=== PATIENT | female | born 1945 | race Caucasian/White ===

== ENCOUNTER 2024-01-31 11:36 | Inpatient (IN) ==
[2024-01-31 12:07] LABS: Basophils # (auto) 0.03 K/uL (0.00-0.20); Basophils % (auto) 0.3 %; Eosinophils # (auto) 0.06 K/uL (0.00-0.50); Eosinophils % (auto) 0.6 %; Hematocrit (blood only) 43.4 % (37.0-47.0); Hemoglobin 14.6 g/dl (12.0-16.0); Immature Granulocytes # (auto) 0.04 K/uL (0.01-0.20); Immature Granulocytes % (auto) 0.4 %; Lymphocytes # (auto) 2.65 K/uL (1.20-3.40); Lymphocytes % (auto) 26.6 %; Mean Corpuscular Hemoglobin 31.4 pg (25.0-34.0); Mean Corpuscular Hgb Conc 33.6 g/dL (32.0-36.0); Mean Corpuscular Volume 93.3 fL (80.0-100.0); Mean Platelet Volume 9.8 fL (9.4-12.4); Monocytes # (auto) 0.54 K/uL (0.11-0.59); Monocytes % (auto) 5.4 %; Neutrophils # (auto) 6.66 K/uL (1.40-6.50); Neutrophils % (auto) 66.7 %; Platelet Count 333 K/uL (130-400); RDW Coefficient of Variation 13.6 % (11.5-14.5); RDW Standard Deviation 46.6 fL (36.4-46.3); Red Blood Count 4.65 M/uL (4.20-5.40); White Blood Count 9.98 K/ul (4.8-10.8)
[2024-01-31 12:20] LABS: Albumin Globulin Ratio 1.2 (0.9-2); BUN Creatinine Ratio 31.1 (10-20); Bilirubin,Total 0.5 mg/dl (0.2-1.0); Calcium 9.6 mg/dl (8.6-10.3); Creatinine Clr Calc Pharmacy 68.4 ml/min; Est GFR (African American) 100.6 ml/min; Est GFR (Non-African American) 86.8 ml/min; Globulin 3.4 gm/dl (2.5-4.0); Potassium 3.3 mmol/L (3.5-5.1); Total Protein 7.4 gm/dl (6.0-8.3)
[2024-01-31 12:26] LABS: Troponin I High Sensitivity 8.6 pg/ml (0-14)
[2024-01-31 12:33] LABS: Partial Thromboplastin Time 28 Seconds (21-31); Prothrombin Time 10.6 Seconds (9.0-12.0)
[2024-01-31 12:39] LABS: Influenza A virus by PCR Negative (Neg); Influenza B virus by PCR Negative (Neg); RSV by PCR Negative (Neg); SARS CoV2 RNA(COVID-19) Ceph NEGATIVE (Negative)
--- NOTE | 2024-01-31 12:56 | XRay Report ---
XR chest 1V not portable HISTORY: Shortness of breath. Cough. COMPARISON: None. FINDINGS: No pneumothorax. No pleural effusions. No focal lung consolidations to suggest a pneumonia. No evidence for pulmonary edema. The cardiac silhouette is mildly enlarged. There is a mildly tortuo us thoracic aorta. No acute fractures. There is a right shoulder prosthesis. IMPRESSION: Mild cardiomegaly. Otherwise, no acute process within the chest. ACT 112: Negative or not required by law. Electronically signed by: Logan Sullivan M.D. 01/31/2024 12:55 PM
--- NOTE | 2024-01-31 14:53 | Emergency Department Note ---
Impression & Plan Hypoxia, Parainfluenza infection, Pneumonia, Failure of outpatient treatment ED Provider Note NAME: SIMIN BROUSSARD AGE: 78 SEX: F : 1945 ARRIVES VIA: Walk-In INFORMANT: [Patient] ED PROVIDER(S): [Husam Garrido MD] CHIEF COMPLAINT: Short of breath HISTORY OF PRESENT ILLNESS: The patient is a 78-year-old female who does not have diagnosed lung disease. The patient states that about a week ago, she began with some shortness of breath, cough and congestion. She went to [facility] and was given an antibiotic and an inhaler. She feels no better, she is still quite short of breath. She thinks her cough has changed from dry to wet. There has been no fever. The patient was concerned with how she was feeling as she lives alone. She went to her doctor's office today and her O2 saturation was in the low 80s with exertion. She was sent to our ER for evaluation for failed outpatient bronchitis treatment. PMHx/PSHx/Social Hx: See Below PHYSICAL EXAM: GENERAL: Patient is in no acute distress. HEENT: No acute trauma, normocephalic atraumatic, mucous membranes moist, no nasal congestion. NECK: No stridor, no adenopathy, no meningismus, trachea is midline. LUNGS: Wheezing bilaterally, no obvious respiratory distress, breath sounds are diminished bilaterally. HEART: Without murmurs gallops or rubs, regular rate and rhythm. ABDOMEN: Soft, nontender, no peritonitis. EXTREMITIES: No cyanosis, full range of motion of all the joints without pain or difficulty. NEUROLOGIC: Oriented x 3, no acute motor or sensory deficits, no focal weakness. SKIN: No jaundice, no diaphoresis. DIFFERENTIAL DIAGNOSIS: Bronchitis or pneumonia, PE, hypoxia, anemia, electrolyte imbalance, among others. EMERGENCY DEPARTMENT PROCEDURES: MEDICAL DECISION MAKING: There is no leukocytosis or concerning anemia. There is a normal platelet count. No coagulopathy. Potassium slightly low but not in need of emergent correction. No renal failure. No concerning liver enzyme elevation. ECG shows sinus rhythm with inverted T waves in the anterior and lateral leads. No ST elevation. Cardiac enzyme testing x 1 was not consistent with acute cardiac injury. Respiratory bio fire was positive for parainfluenza virus. Chest x-ray did not show any obvious focal pneumonia. Chest CT did not show PE, patchy diffuse bilateral pneumonia was noted. The patient was hypoxic. She received nasal cannula O2 supplementation. She was given a DuoNeb, she received IV Solu-Medrol, she was given IV ceftriaxone as antibiotic coverage. The patient's pneumonia may be viral. In any regard, she has failed outpatient treatment. I do think she requires a hospital stay. Further care for her hypoxia and CT findings is warranted. I did speak with the patient and case management, the on-call hospitalist was consulted. Prior/Outside records/notes reviewed: Today's outpatient note describing her presentation and the need for the ED referral. ECG per my interpretation: Indication was shortness of breath. ECG shows a normal sinus rhythm with a rate of 80. There are some inverted T waves in the anterior and lateral leads. There is no ST elevation. No PVCs. The QTc is 472. No old ECGs available for comparison. Continuous Cardiac Monitoring per my interpretation: An order was placed for continuous cardiac monitoring. The monitor shows a rate of 78 with normal sinus rhythm. Imaging/x-ray results per my interpretation: Chest x-ray shows some diffuse parenchymal congestion but there is no infiltrate or pneumothorax, no CHF. Chronic Medical/Social conditions affecting care: Advanced age. Care/Management discussed with: Case management, the on-call hospitalist. Level of care consideration(s): After review of the information above and other included data: --I believe the patient requires escalation of care to admission DISPOSITION: Admission Past Med/Surg History Problem List (Updated 02/01/24 @ 10:26 by Husam Garrido MD) Failure of outpatient treatment (Acute) Pneumonia (Acute) Parainfluenza infection (Acute) Hypoxia (Acute) Hyperlipidemia Hypoxia Parainfluenza virus infection Multifocal pneumonia Medical History Borderline diabetes Hypertension Social History Smoking Status: Never smoker Hx Alcohol Use: No Hx Substance Use: No Preferred Language: Turkmen Communication Ability: Effective Financial Operations Clerk Required: No Beliefs That Will Affect Care: None Current Living Situation: Alone Current Living Situation Comment: Son checks on regularly Other Information That Helps Us Care for You: No Feels Safe at Home: Yes Safety Concerns: Feels Safe At This Time Assistive Devices: Glasses Allergies Allergies Allergy/AdvReac Type Severity Reaction Status Date / Time No Known Allergies Allergy Unverified 01/31/24 16:54 Home Meds Home Medications Medication Instructions Recorded Confirmed acetaminophen 500 mg tablet 1,000 mg PO QID PRN Pain 01/31/24 01/31/24 (Tylenol Extra Strength) amlodipine 2.5 mg tablet 2.5 mg PO DAILY 01/31/24 01/31/24 cholecalciferol (vitamin D3) 50 50 mcg PO DAILY 01/31/24 01/31/24 mcg (2,000 unit) capsule (Vitamin D3) metformin 500 mg tablet,extended 500 mg PO DAILY 01/31/24 01/31/24 release 24 hr pravastatin 80 mg tablet 80 mg PO DAILY 01/31/24 01/31/24 Results & Data (ED) Vital Signs Vital Signs - 24 hr 01/31/24 11:39 01/31/24 11:48 01/31/24 11:50 Temperature 36.5 C Temperature Source Temporal Artery Scan Pulse Rate 84 Pulse Rate [Apical] Respiratory Rate 14 Respiratory Effort / Characteristics Respiratory Depth Blood Pressure 150/104 H Blood Pressure [Right Arm] Blood Pressure Mean 119 Blood Pressure Mean [Right Arm] Pulse Oximetry 89 L 89 L 94 Oxygen Delivery Method Room Air Room Air Nasal Cannula Room Air Oxygen Flow Rate 0 Sepsis New/Unexplained Change in Mental Status No Sepsis Action Taken by Nursing No Action Required Oxygen Flow Rate - Titration 2 Pulse Oximetry Post Tiitration 94 01/31/24 14:52 01/31/24 15:46 01/31/24 17:00 Temperature Temperature Source Pulse Rate Pulse Rate [Apical] 75 80 Respiratory Rate 16 Respiratory Effort / Characteristics Non-Labored Spontaneous Respiratory Depth Normal Blood Pressure Blood Pressure [Right Arm] 151/99 H 163/106 H Blood Pressure Mean Blood Pressure Mean [Right Arm] 116 125 Pulse Oximetry 88 L 90 92 Oxygen Delivery Method Room Air Nasal Cannula Nasal Cannula Oxygen Flow Rate 3 3 Sepsis New/Unexplained Change in Mental Status Sepsis Action Taken by Nursing Oxygen Flow Rate - Titration Pulse Oximetry Post Tiitration Home Medications Current Medication List: was personally reviewed by me Laboratory Data Attestation: I reviewed the patient's lab results. 02/01/24 07:03 02/01/24 07:03 Lab Results 01/31/24 01/31/24 01/31/24 Range/Units 11:48 11:50 11:50 WBC 9.98 (4.8-10.8) K/ul RBC 4.65 (4.20-5.40) M/uL Hgb 14.6 (12.0-16.0) g/dl Hct 43.4 (37.0-47.0) % MCV 93.3 (80.0-100.0) fL MCH 31.4 (25.0-34.0) pg MCHC 33.6 (32.0-36.0) g/dL RDW Std Deviation 46.6 H (36.4-46.3) fL RDW Coeff of Muriel 13.6 (11.5-14.5) % Plt Count 333 (130-400) K/uL MPV 9.8 (9.4-12.4) fL Immature Gran % (Auto) 0.4 % Neut % (Auto) 66.7 % Lymph % (Auto) 26.6 % [place] % (Auto) 5.4 % Eos % (Auto) 0.6 % Baso % (Auto) 0.3 % Neut # (Auto) 6.66 H (1.40-6.50) K/uL Lymph # (Auto) 2.65 (1.20-3.40) K/uL [place] # (Auto) 0.54 (0.11-0.59) K/uL Eos # (Auto) 0.06 (0.00-0.50) K/uL Baso # (Auto) 0.03 (0.00-0.20) K/uL Immature Gran # (Auto) 0.04 (0.01-0.20) K/uL PT 10.6 (9.0-12.0) Seconds INR 1.0 (0.9-1.1) APTT 28 (21-31) Seconds PTT Ratio 1.0 Sodium 142 (136-145) mmol/L Potassium 3.3 L (3.5-5.1) mmol/L Chloride 105 (98-107) mmol/L Carbon Dioxide 29 (21-32) mmol/L Anion Gap 8 (3-11) BUN 19 (6-23) mg/dl Creatinine 0.61 (0.6-1.2) mg/dl Est Cr Clr Drug Dosing 68.4 ml/min Est GFR ( Amer) 100.6 ml/min Est GFR (Non-Af Amer) 86.8 ml/min BUN/Creatinine Ratio 31.1 H (10-20) Glucose 97 (70-99(Fasting)) mg/dl Calcium 9.6 (8.6-10.3) mg/dl Total Bilirubin 0.5 (0.2-1.0) mg/dl AST 16 (13-39) U/L ALT 11 (7-52) U/L Alkaline Phosphatase 64 (34-104) U/L Troponin I High Sens 8.6 (0-14) pg/ml Total Protein 7.4 (6.0-8.3) gm/dl Albumin 4.0 (3.4-5.0) gm/dl Globulin 3.4 (2.5-4.0) gm/dl Albumin/Globulin Ratio 1.2 (0.9-2) Procalcitonin < 0.02 (0-0.5) ng/ml Adenovirus (PCR) Not Detected (NotDetected) B. pertussis DNA (PCR) Not Detected (NotDetected) B.parapertussis DNA PCR Not Detected (NotDetected) C. pneumoniae DNA (PCR) Not Detected (NotDetected) Coronavirus OC43 (PCR) Not Detected (NotDetected) Coronavirus HKU1 (PCR) Not Detected (NotDetected) Coronavirus 229E (PCR) Not Detected (NotDetected) SARS-CoV-2 (PCR) NEGATIVE Not Detected (Negative) Coronavirus NL63 (PCR) Not Detected (NotDetected) Human Metapneumovir PCR Not Detected (NotDetected) Influenza Type A (PCR) Negative (Neg) Influenza Type B (PCR) (Neg) M. pneumoniae (PCR) (NotDetected) Parainfluenza 1 (PCR) (NotDetected) Parainfluenza 2 (PCR) (NotDetected) Parainfluenza 3 (PCR) (NotDetected) Parainfluenza 4 (PCR) (NotDetected) RSV (RT-PCR) (Neg) RSV (PCR) (NotDetected) Entero/Rhino (PCR) (NotDetected) 01/31/24 01/31/24 Range/Units 11:50 11:50 WBC (4.8-10.8) K/ul RBC (4.20-5.40) M/uL Hgb (12.0-16.0) g/dl Hct (37.0-47.0) % MCV (80.0-100.0) fL MCH (25.0-34.0) pg MCHC (32.0-36.0) g/dL RDW Std Deviation (36.4-46.3) fL RDW Coeff of Muriel (11.5-14.5) % Plt Count (130-400) K/uL MPV (9.4-12.4) fL Immature Gran % (Auto) % Neut % (Auto) % Lymph % (Auto) % [place] % (Auto) % Eos % (Auto) % Baso % (Auto) % Neut # (Auto) (1.40-6.50) K/uL Lymph # (Auto) (1.20-3.40) K/uL [place] # (Auto) (0.11-0.59) K/uL Eos # (Auto) (0.00-0.50) K/uL Baso # (Auto) (0.00-0.20) K/uL Immature Gran # (Auto) (0.01-0.20) K/uL PT (9.0-12.0) Seconds INR (0.9-1.1) APTT (21-31) Seconds PTT Ratio Sodium (136-145) mmol/L Potassium (3.5-5.1) mmol/L Chloride (98-107) mmol/L Carbon Dioxide (21-32) mmol/L Anion Gap (3-11) BUN (6-23) mg/dl Creatinine (0.6-1.2) mg/dl Est Cr Clr Drug Dosing ml/min Est GFR ( Amer) ml/min Est GFR (Non-Af Amer) ml/min BUN/Creatinine Ratio (10-20) Glucose (70-99(Fasting)) mg/dl Calcium (8.6-10.3) mg/dl Total Bilirubin (0.2-1.0) mg/dl AST (13-39) U/L ALT (7-52) U/L Alkaline Phosphatase (34-104) U/L Troponin I High Sens (0-14) pg/ml Total Protein (6.0-8.3) gm/dl Albumin (3.4-5.0) gm/dl Globulin (2.5-4.0) gm/dl Albumin/Globulin Ratio (0.9-2) Procalcitonin (0-0.5) ng/ml Adenovirus (PCR) (NotDetected) B. pertussis DNA (PCR) (NotDetected) B.parapertussis DNA PCR (NotDetected) C. pneumoniae DNA (PCR) (NotDetected) Coronavirus OC43 (PCR) (NotDetected) Coronavirus HKU1 (PCR) (NotDetected) Coronavirus 229E (PCR) (NotDetected) SARS-CoV-2 (PCR) (Negative) Coronavirus NL63 (PCR) (NotDetected) Human Metapneumovir PCR (NotDetected) Influenza Type A (PCR) Not Detected (Neg) Influenza Type B (PCR) Negative Not Detected (Neg) M. pneumoniae (PCR) Not Detected (NotDetected) Parainfluenza 1 (PCR) Not Detected (NotDetected) Parainfluenza 2 (PCR) Not Detected (NotDetected) Parainfluenza 3 (PCR) DETECTED A (NotDetected) Parainfluenza 4 (PCR) Not Detected (NotDetected) RSV (RT-PCR) Negative (Neg) RSV (PCR) Not Detected (NotDetected) Entero/Rhino (PCR) Not Detected (NotDetected) Administered Medications Albuterol (Albut/Ipratrop 3mg/0.5mg Neb 3 Ml Vial) 3 ml NEB Q6R [facility]; Protocol Stop: 03/01/24 20:44 Last Admin: 02/01/24 07:12 Dose: 3 ml Documented By: Admin: 02/01/24 00:30 Dose: 3 ml Documented By: Admin: 01/31/24 20:59 Dose: 3 ml Documented By: OSIRIS Amlodipine Besylate (Amlodipine Besylate 5 Mg Tab) 2.5 mg PO DAILY [facility] Stop: 03/02/24 08:59 Last Admin: 02/01/24 09:05 Dose: 2.5 mg Documented By: MAURY Enoxaparin Sodium (Enoxaparin Inj 40 Mg/0.4 Ml Syr) 40 mg SQ Q24H [facility] Stop: 03/01/24 20:59 Last Admin: 01/31/24 21:59 Dose: 40 mg Documented By: KAYKAY Azithromycin 500 mg/ Dextrose 255 mls @ 127.5 mls/hr IV Q24H [facility] Stop: 02/08/24 08:15 Last Admin: 02/01/24 09:05 Dose: 127.5 mls/hr Documented By: MAURY Insulin Aspart (Insulin Aspart Per Unit Charge) 0 units SC ACHS [facility] Stop: 03/01/24 20:59 Last Admin: 02/01/24 09:04 Dose: 5 units Documented By: MAURY Co-signed By: RASHID Admin: 01/31/24 22:00 Dose: 2 units Documented By: KAYKAY Co-signed By: EULALIOR Pravastatin Sodium (Pravastatin Sod 40 Mg Tab) 80 mg PO DAILY [facility] Stop: 03/02/24 08:59 Last Admin: 02/01/24 09:06 Dose: 80 mg Documented By: MAURY Discontinued Medications Albuterol (Albut/Ipratrop 3mg/0.5mg Neb 3 Ml Vial) 3 ml NEB NOW STA; Protocol Stop: 01/31/24 14:38 Last Admin: 01/31/24 15:00 Dose: 3 ml Documented By: JULEE Ceftriaxone Sodium (Rocephin) 2,000 mg in 50 mls @ 100 mls/hr IV NOW STA Stop: 01/31/24 16:39 Last Infusion: 01/31/24 16:51 Dose: Infused Documented By: Admin: 01/31/24 16:21 Dose: 100 mls/hr Documented By: JULEE Ioversol (Optiray 320 125ml) 118 ml IV ONCE ONE Stop: 01/31/24 15:34 Last Admin: 01/31/24 15:34 Dose: 118 ml Documented By: BRANDO Methylprednisolone (Methylprednisolone 125 Mg/2 Ml Vial) 60 mg IV NOW STA Stop: 01/31/24 14:38 Last Admin: 01/31/24 14:55 Dose: 60 mg Documented By: JULEE Methylprednisolone (Methylprednisolone 125 Mg/2 Ml Vial) 60 mg IV NOW STA Stop: 01/31/24 16:11 Last Admin: 01/31/24 16:21 Dose: 60 mg Documented By: JULEE Potassium Chloride (Potassium Chloride 10 Meq Tabcr) 10 meq PO NOW STA Stop: 01/31/24 17:52 Last Admin: 01/31/24 18:35 Dose: 10 meq Documented By: [facility] [place] Imaging Data Radiologist's Impression: Chest X-Ray 01/31/24 11:43 XR chest 1V not portable HISTORY: Shortness of breath. Cough. COMPARISON: None. FINDINGS: No pneumothorax. No pleural effusions. No focal lung consolidations to suggest a pneumonia. No evidence for pulmonary edema. The cardiac silhouette is mildly enlarged. There is a mildly tortuous thoracic aorta. No acute fractures. There is a right shoulder prosthesis. IMPRESSION: Mild cardiomegaly. Otherwise, no acute process within the chest. ACT 112: Negative or not required by law. Electronically signed by: Logan Sullivan M.D. 01/31/2024 12:55 PM Discharge Plan Visit Data Chief Complaint: Referred by Doctor Stated Complaint: REF BY DOC ED Provider: Husam Garrido Discharge Problem: Hypoxia, Parainfluenza infection, Pneumonia, Failure of outpatient treatment Patient Disposition: Admitted As Inpatient Condition: Fair Discharge Instructions Interventions: ED Discharge Assessment Last Done: 01/31/24 19:44 Discharge Problem: Pneumonia Qualifiers: Pneumonia type: due to unspecified organism Laterality: bilateral Lung location: unspecified part of lung Qualified Code(s): J18.9 - Pneumonia, unspecified organism
[2024-01-31] MEDS: methylPREDNISolone 125 MG/2 ML VIAL IV STA ×2 (14:55→16:21)
[2024-01-31] MEDS: ALBUT/IPRATROP 3MG/0.5MG NEB 3 ML VIAL NEB STA (15:00)
[2024-01-31] MEDS: OPTIRAY 320 125ml IV ONE (15:34)
[2024-01-31 15:43] LABS: Adenovirus PCR Not Detected (NotDetected); Bordetella parapertussis PCR Not Detected (NotDetected); Bordetella pertussis PCR Not Detected (NotDetected); Chlamydia pneumoniae PCR Not Detected (NotDetected); Coronavirus 229E PCR Not Detected (NotDetected); Coronavirus CoV-2 (COVID19)PCR Not Detected (NotDetected); Coronavirus HKU1 PCR Not Detected (NotDetected); Coronavirus NL63 PCR Not Detected (NotDetected); Coronavirus OC43PCR Not Detected (NotDetected); Human Metapneumovirus PCR Not Detected (NotDetected); Influenza A PCR Not Detected (NotDetected); Influenza B PCR Not Detected (NotDetected); Mycoplasma pneumoniae PCR Not Detected (NotDetected); Parainfluenza Virus 1 PCR Not Detected (NotDetected); Parainfluenza Virus 2 PCR Not Detected (NotDetected); Parainfluenza Virus 3 PCR DETECTED (NotDetected); Parainfluenza Virus 4 PCR Not Detected (NotDetected); Respiratory Syncytial VirusPCR Not Detected (NotDetected); Rhinovirus/Enterovirus PCR Not Detected (NotDetected)
--- NOTE | 2024-01-31 15:47 | CT Scan Report ---
CT angio chest PE protocol CT DOSE: 453.12 mGy.cm HISTORY: 78 years-old Female with PE. Acute shortness of breath TECHNIQUE: Multiple CTA images of the chest were obtained after the intravenous administration of 118 ml Optiray. Coronal and sagittal MIPS were obtained from the axial data set and were submitted for review. All measurements were obtained according to NASCET criteria. A dose lowering technique was u tilized adhering to the principles of ALARA. COMPARISON: Chest radiograph same day FINDINGS: CTA: Heart is mildly enlarged. Mild coronary artery calcifications. Atherosclerosis of the aorta with desc ending thoracic aortic tortuosity. Additionally, there is ectasia of the descending thoracic aorta, 3 .4 cm. No pulmonary emboli identified. CT CHEST: No thyroid nodule. Mediastinal and hilar lymph nodes measure up to 9 mm, likely reactive. No pneumoth orax. Bronchial wall thickening with multifocal mucus plugging. Mild pulmonary emphysema. Patchy subs egmental groundglass and nodular areas of consolidation are noted within a multilobar distribution in cluding a 2.7 cm focus in the right upper lobe, image 150. No pulmonary edema. 3.3 cm probable cyst of the superior pole left kidney. Reverse right shoulder arthroplasty. No acute fracture. IMPRESSION: 1. No pulmonary emboli identified. 2. Emphysema with bronchitis and mucous plugging. Additional patchy groundglass and consolidative opa cities are suggestive of multifocal pneumonia. 3. Borderline enlarged mediastinal and hilar lymph nodes, likely reactive. 4. Ectasia of the descending thoracic aorta, 3.4 cm. ACT 112: Negative or not required by law. The above report was generated using voice recognition software. It may contain grammatical, syntax o r spelling errors. Electronically signed by: Prudencio Mehta M.D. 01/31/2024 3:46 PM
[2024-01-31] MEDS: cefTRIAXone SODIUM 2,000 MG/50 ML BAG IV STA (16:21)
--- NOTE | 2024-01-31 17:17 | History & Physical Report ---
Date of Service January 31, 2024 Assessment & Plan (1) Multifocal pneumonia: Plan: Worsening SOB/productive cough x 7 days Patient was placed on Augmentin on 01/25, but did not take the full dose as she could not tolerate the diarrhea Chest CTA without pulmonary embolism, but included consolidative opacities consistent with multifocal pneumonia Procalcitonin ordered, pending MRSA swab ordered, pending Rocephin 2000 mg IV q24h Follow blood culture A.m. CBC, BMP (2) Parainfluenza virus infection: Plan: Parainfluenza 3 (+) on arrival Droplet precautions DuoNeb 3 mL Q6R for wheezing Acetaminophen as needed for pain/fever Supportive care (3) Hypoxia: Plan: Patient dropped to 83% on RA with ambulation Supplemental oxygen as needed to maintain SpO2 >94% Continuous pulse oximetry Dizziness/lightheadedness with walking PT/OT evaluations appreciated (4) Borderline diabetes: Plan: No A1c on file Hold metformin SSI; with target BSG range 110-140mg/dL, CF 50, carb ratio 15 T2DM diet BSG ACHS Adjust regimen as needed AM A1c (5) Hypertension: Plan: Continue amlodipine (6) Hyperlipidemia: Plan: Continue statin Plan Disposition: Admit to MedSurg telemetry DNR/DNI T2DM, heart healthy diet DVT PPx History of Present Illness Chief Complaint: SOB/dyspnea Primary Care Provider: Tadeo Carrasco MD Ting is a pleasant 78-year-old female with PMH of borderline diabetes, HTN and HLD. She presented for SOB x 1 week. Her difficulty breathing started Saturday night, and she went to [facility] last Saturday and was diagnosed with bronchitis. She was placed on Augmentin BID as well as an inhaler, but she stopped taking the Augmentin on Saturday due to severe diarrhea. Throughout the week, the breathing got worse. She will use the inhaler every 4 hours, but this did not help. She endorses both SOB at rest and with exertion, but she notes that the JANSEN has become severe even when walking to the bathroom. SOB is worse when she lies flat on her back. No supplemental oxygen at home. When she was at her PCPs office today, her oxygen saturation dropped to 83% on RA with ambulation. She did not take any of her regular morning medicine today except for her amlodipine; no recent change in medications. She denies a history of CHF. She denies smoking, tobacco use, and recent alcohol use. Patient is hypertensive at 163/106, and SpO2 is 92% on 3 L NC. ED course: Rocephin 2000 mg IV Solu-Medrol 60 mg IV x 2 DuoNeb 3 mL ROS: Patient endorses dizziness & lightheadedness with walking, SOB at rest and with exertion, productive cough (clear sputum), hoarseness, diarrhea (secondary to Augmentin, per patient), Patient denies fever, chills, night-sweats, body aches, LINO, changes in vision, chest pain, chest palpitations, pleuritic CP, hemoptysis, wheezing, abdominal pain, N/V, change in urinary/bowel habits, or numbness/tingling/swelling in the arms or legs. Allergies Allergy/AdvReac Type Severity Reaction Status Date / Time No Known Allergies Allergy Unverified 01/31/24 16:54 Home Medications Medication Instructions Recorded Confirmed Type acetaminophen 500 mg tablet 1,000 mg PO QID PRN Pain 01/31/24 01/31/24 History (Tylenol Extra Strength) amlodipine 2.5 mg tablet 2.5 mg PO DAILY 01/31/24 01/31/24 History cholecalciferol (vitamin D3) 50 50 mcg PO DAILY 01/31/24 01/31/24 History mcg (2,000 unit) capsule (Vitamin D3) metformin 500 mg tablet,extended 500 mg PO DAILY 01/31/24 01/31/24 History release 24 hr pravastatin 80 mg tablet 80 mg PO DAILY 01/31/24 01/31/24 History Past Med/Surg History Problem List (Updated 01/31/24 @ 18:06 by Logan Fontenot PA-C) Borderline diabetes Hyperlipidemia Hypertension Hypoxia Parainfluenza virus infection Multifocal pneumonia Social History Smoking Status: Never smoker Hx Alcohol Use: No Hx Substance Use: No Preferred Language: Lithuanian Communication Ability: Effective Traffic Control Specialist Required: No Beliefs That Will Affect Care: None Current Living Situation: Alone Current Living Situation Comment: Son checks on regularly Other Information That Helps Us Care for You: No Feels Safe at Home: Yes Safety Concerns: Feels Safe At This Time Assistive Devices: Glasses Review of Systems Review of Systems: See HPI above Physical Exam Physical Exam: General: Mild acute respiratory distress; non-toxic appearing; well-nourished; cooperative; SpO2 92% on 3 LNC HEENT: normocephalic, atraumatic; no scleral icterus; PERRLA; moist mucus membrane; vision and hearing grossly intact Neck: supple; no lymphadenopathy; trachea midline Skin: warm, dry without signs of tenting; no cyanosis; no rashes, bruising, lesions, or erythema noted CV: chest wall NTP; RRR; S1/S2 normal; no murmurs/rubs/gallops; bounding pulses intact and symmetric at radial, DP, and PT Lungs: Mild acute respiratory distress; conversational dyspnea 70 symmetrical chest wall expansion; bibasilar lower lung crackles as well as inspiratory wheeze across all lung field bilaterally ABD: Soft, NTP; BS present; no rebound/guarding; no distention MSK: no tics or fasciculations; no edema noted in the LEs b/l, nonerythematous Neuro: A&Ox3; normal mood and affect; fluent speech; no focal deficits; sensation grossly intact in the LEs b/l Results & Data Results & Data Vital Signs (Past 12 Hours) Vital Signs Temp Pulse Pulse Resp BP BP Pulse Ox 01/31/24 17:00 80 16 163/106 H 92 01/31/24 15:46 75 151/99 H 90 01/31/24 14:52 88 L 01/31/24 11:50 94 01/31/24 11:48 89 L 01/31/24 11:39 36.5 C 84 14 150/104 H 89 L O2 Del Method O2 Flow Rate 01/31/24 17:00 Nasal Cannula 3 01/31/24 15:46 Nasal Cannula 3 01/31/24 14:52 Room Air 01/31/24 11:50 Room Air 01/31/24 11:48 Room Air, Nasal Cannula 0 01/31/24 11:39 Room Air Laboratory Results Abnormal lab results 01/31/24 01/31/24 Range/Units 11:48 11:50 RDW Std Deviation 46.6 H (36.4-46.3) fL Neut # (Auto) 6.66 H (1.40-6.50) K/uL Potassium 3.3 L (3.5-5.1) mmol/L BUN/Creatinine Ratio 31.1 H (10-20) Parainfluenza 3 (PCR) DETECTED A (NotDetected) Diagnostic Findings Chest X-Ray 01/31/24 11:43 XR chest 1V not portable HISTORY: Shortness of breath. Cough. COMPARISON: None. FINDINGS: No pneumothorax. No pleural effusions. No focal lung consolidations to suggest a pneumonia. No evidence for pulmonary edema. The cardiac silhouette is mildly enlarged. There is a mildly tortuous thoracic aorta. No acute fractures. There is a right shoulder prosthesis. IMPRESSION: Mild cardiomegaly. Otherwise, no acute process within the chest. ACT 112: Negative or not required by law. Electronically signed by: Logan Sullivan M.D. 01/31/2024 12:55 PM Chest CTA 01/31/24 14:37 CT angio chest PE protocol CT DOSE: 453.12 mGy.cm HISTORY: 78 years-old Female with PE. Acute shortness of breath TECHNIQUE: Multiple CTA images of the chest were obtained after the intravenous administration of 118 ml Optiray. Coronal and sagittal MIPS were obtained from the axial data set and were submitted for review. All measurements were obtained according to NASCET criteria. A dose lowering technique was utilized adhering to the principles of ALARA. COMPARISON: Chest radiograph same day FINDINGS: CTA: Heart is mildly enlarged. Mild coronary artery calcifications. Atherosclerosis of the aorta with descending thoracic aortic tortuosity. Additionally, there is ectasia of the descending thoracic aorta, 3.4 cm. No pulmonary emboli identified. CT CHEST: No thyroid nodule. Mediastinal and hilar lymph nodes measure up to 9 mm, likely reactive. No pneumothorax. Bronchial wall thickening with multifocal mucus plugging. Mild pulmonary emphysema. Patchy subsegmental groundglass and nodular areas of consolidation are noted within a multilobar distribution including a 2.7 cm focus in the right upper lobe, image 150. No pulmonary edema. 3.3 cm probable cyst of the superior pole left kidney. Reverse right shoulder arthroplasty. No acute fracture. IMPRESSION: 1. No pulmonary emboli identified. 2. Emphysema with bronchitis and mucous plugging. Additional patchy groundglass and consolidative opacities are suggestive of multifocal pneumonia. 3. Borderline enlarged mediastinal and hilar lymph nodes, likely reactive. 4. Ectasia of the descending thoracic aorta, 3.4 cm. ACT 112: Negative or not required by law. The above report was generated using voice recognition software. It may contain grammatical, syntax or spelling errors. Electronically signed by: Prudencio Mehta M.D. 01/31/2024 3:46 PM ECG Additional Comments: ECG revealed NSR at 80 bpm; QTc 472 Code Status & VTE Plan Code Status DNR/DNI VTE Prophylaxis Plan VTE Prophylaxis will be ordered: Yes Supervising Physician Co-Signing Physician Notes Patient seen and examined, chart reviewed, case discussed with Logan Fontenot PA-C and I agree with the assessment and plan as above except as otherwise noted Labs and images reviewed 78-year-old female with multifocal pneumonia, chest CTA shows consolidative opacities. She does not have a leukocytosis, and procalcitonin is negative. Bio fire is positive for parainfluenza. Given consolidation has been covered for superimposed pneumonia with Rocephin, although with negative Pro-Esa and no leukocytosis suspicious for viral process. If superimposed menu suspected could expand to azithromycin to cover for atypical pathogens. She is hypoxic and dyspneic on conversation in the ER. Bibasilar crackles are present no rales. Agree with management above PG Care Time/CCT Total # of Minutes Spent Total Time Spent with Patient: Total time spent is greater than 50% in coordination of care (as documented) at patient's floor/unit and/or counseling patient: [place] [address] INT INP/OBS CARE 3/75MIN Patient Type New Medical Decision Making High Complexity Diagnoses Multifocal pneumonia J18.9 Parainfluenza virus infection B34.8 Hypoxia R09.02 Borderline diabetes R73.03 Hypertension I10 Hyperlipidemia E78.5
[2024-01-31] MEDS: POTASSIUM CHLORIDE 10 MEQ TABCR PO STA (18:35)
[2024-01-31] MEDS ORDERED: GLUCOSE 40% GEL 15 GM TUBE PO PRN (20:45)
[2024-01-31] MEDS ORDERED: GLUCOSE 10 TAB/TUBE PO PRN (20:45)
[2024-01-31] MEDS ORDERED: ACETAMINOPHEN 325 MG TAB PO PRN (20:45)
[2024-01-31] MEDS ORDERED: GLUCAGON FOR INJ 1 MG VIAL SQ PRN (20:45)
[2024-01-31] MEDS ORDERED: DEXTROSE 50% 50 ML SYRINGE IV PRN (20:45)
[2024-01-31] MEDS ORDERED: CARBOHYDRATES FOR HYPOGLYCEMIA PO PRN (20:45)
[2024-01-31] MEDS: ALBUT/IPRATROP 3MG/0.5MG NEB 3 ML VIAL NEB SCH (20:59)
[2024-01-31] MEDS: ENOXAPARIN INJ 40 MG/0.4 ML SYR SQ SCH (21:59)
[2024-01-31] MEDS: INSULIN ASPART PER UNIT CHARGE SC SCH (22:00)
--- NOTE | 2024-02-01 07:14 | Electrocardiogram Report ---
Test Reason : Blood Pressure : / mmHG Vent. Rate : 080 BPM Atrial Rate : 080 BPM P-R Int : 160 ms QRS Dur : 086 ms QT Int : 410 ms P-R-T Axes : 054 001 110 degrees QTc Int : 472 ms Normal sinus rhythm Abnormal ECG No previous ECGs available Confirmed by Moisés Galloway ([id number]) on 02/01/2024 7:14:01 AM Referred By: Tadeo Carrasco Confirmed By:Benito Galloway
[2024-02-01 08:08] LABS: Basophils # (auto) 0.01 K/uL (0.00-0.20); Basophils % (auto) 0.1 %; Immature Granulocytes # (auto) 0.04 K/uL (0.01-0.20); Immature Granulocytes % (auto) 0.5 %; Lymphocytes # (auto) 2.23 K/uL (1.20-3.40); Mean Corpuscular Hgb Conc 33.3 g/dL (32.0-36.0); Mean Corpuscular Volume 92.9 fL (80.0-100.0); Mean Platelet Volume 9.9 fL (9.4-12.4); Monocytes # (auto) 0.24 K/uL (0.11-0.59); Monocytes % (auto) 3.1 %; Neutrophils # (auto) 5.16 K/uL (1.40-6.50); Neutrophils % (auto) 67.3 %; Platelet Count 317 K/uL (130-400); RDW Coefficient of Variation 13.2 % (11.5-14.5); RDW Standard Deviation 45.4 fL (36.4-46.3); White Blood Count 7.68 K/ul (4.8-10.8)
[2024-02-01 08:29] LABS: BUN Creatinine Ratio 40.7 (10-20); Calcium 8.8 mg/dl (8.6-10.3); Creatinine Clr Calc Pharmacy 77.3 ml/min; Est GFR (African American) 104.8 ml/min; Est GFR (Non-African American) 90.4 ml/min; Potassium 3.4 mmol/L (3.5-5.1)
[2024-02-01 08:55] LABS: Estimated Average Glucose 154 mg/dl
[2024-02-01] MEDS: AZITHROMYCIN 500 MG in DEXTROSE 5% 250 ML IV SCH (09:05)
[2024-02-01] MEDS: amLODIPine BESYLATE 5 MG TAB PO SCH (09:05)
[2024-02-01] MEDS: PRAVASTATIN SOD 40 MG TAB PO SCH (09:06)
[2024-02-01] MEDS: POTASSIUM CHLORIDE CRTAB 20 MEQ TABCR PO STA (11:19)
[2024-02-01] MEDS ORDERED: methylPREDNISolone 125 MG/2 ML VIAL IV STA (11:36)
--- NOTE | 2024-02-01 11:44 | Hospitalist Progress Note ---
Date of Service February 01, 2024 Assessment & Plan (1) Multifocal pneumonia: Plan: Worsening SOB/productive cough x 7 days. Did not complete her course of outpatient Augmentin due to side effects - Chest CTA without pulmonary embolism, but included consolidative opacities consistent with multifocal pneumonia - Procalcitonin negative. MRSA swab negative. - Rocephin 2000 mg IV q24h. Add azithromycin IV 500 mg x 3 days - Blood cultures pending wean oxygen as able, goal greater than 94% PT/OT A.m. CBC, BMP (2) Parainfluenza virus infection: Plan: Parainfluenza 3 (+) on arrival Droplet precautions DuoNeb 3 mL Q6R for wheezing Add IV steroids - Solu-Medrol 40 mg today, 20 mg tomorrow Acetaminophen as needed for pain/fever Supportive care (3) Borderline diabetes: Plan: hemoglobin A1c 7.0 Hold metformin SSI; with target BSG range 110-140mg/dL, CF 50, carb ratio 15 BSG ACHS (4) Kidney cysts: Plan: 3.3 cm cyst seen on CT scan - recommend outpatient follow-up Plan chronic stable medical problems: * Hypertensioncontinue amlodipine * Hyperlipidemia - continue statin Disposition: continued inpatient stay with ongoing oxygen needs DVT PPx: Lovenox offered to call to update patient's family, she declined this. Admission and Anticipated Discharge Date Admission Date: January 31, 2024 Supervising Physician Co-Signing Physician Notes Attending Attestation - Chart reviewed, care plan d/w DALJIT Mendoza. I agree w/ the palma components of her documentation. Sergey Felton MD Subjective Patient seen sitting on the side of the bed in room 255. Reports that she is feeling better than when she came in yesterday. Still requiring 2 L of oxygen. Good appetite. Prior diarrhea has stopped. Telemetry sinus rhythm 70s and 80s with PVCs Review of Systems Review of Systems: All systems reviewed & are unremarkable except as noted in Subjective Physical Exam Physical Exam: General: NAD, VS as above Resp: normal respiratory effort, expiratory wheeze throughout, on 2 L CV: RRR, no murmur, Abd: soft, non tender, no hepatosplenomegaly Extremities: Moves all extremities, no edema Neuro: A&O x3, Results & Data Results & Data Vital Signs (Past 12 Hours) Vital Signs Temp Pulse Pulse Resp BP Pulse Ox O2 Del Method 02/01/24 08:39 36.2 C L 81 20 156/88 H 94 Nasal Cannula 02/01/24 07:53 Nasal Cannula 02/01/24 07:20 77 02/01/24 07:13 81 18 93 Nasal Cannula 02/01/24 03:42 36.4 C L 82 20 133/78 94 Nasal Cannula 02/01/24 00:51 36.5 C 80 20 128/80 95 Room Air 02/01/24 00:34 80 17 95 Nasal Cannula 02/01/24 00:00 79 O2 Flow Rate 02/01/24 08:39 2 02/01/24 07:53 2 02/01/24 07:20 02/01/24 07:13 3 02/01/24 03:42 02/01/24 00:51 02/01/24 00:34 3 02/01/24 00:00 Laboratory Results CBC, chemistry, A1c reviewed. PG Care Time/CCT Total # of Minutes Spent Total Time Spent with Patient: Total time spent is greater than 50% in coordination of care (as documented) at patient's floor/unit and/or counseling patient: Coding Level of Care Code 63387 SUB INP/OBS CARE 3/50MIN Diagnoses Multifocal pneumonia J18.9 Parainfluenza virus infection B34.8 Borderline diabetes R73.03 Kidney cysts N28.1
[2024-02-01] MEDS: methylPREDNISolone 40 MG in SYRINGE 0 ML IV STA (12:51)
[2024-02-01] MEDS: cefTRIAXone SODIUM 2,000 MG/50 ML BAG IV SCH (16:56)
[2024-02-02 07:49] LABS: Basophils # (auto) 0.02 K/uL (0.00-0.20); Basophils % (auto) 0.1 %; Hematocrit (blood only) 39.8 % (37.0-47.0); Hemoglobin 13.2 g/dl (12.0-16.0); Immature Granulocytes # (auto) 0.07 K/uL (0.01-0.20); Immature Granulocytes % (auto) 0.5 %; Lymphocytes # (auto) 3.09 K/uL (1.20-3.40); Lymphocytes % (auto) 22.8 %; Mean Corpuscular Hemoglobin 31.6 pg (25.0-34.0); Mean Corpuscular Hgb Conc 33.2 g/dL (32.0-36.0); Mean Corpuscular Volume 95.2 fL (80.0-100.0); Mean Platelet Volume 9.6 fL (9.4-12.4); Monocytes # (auto) 0.84 K/uL (0.11-0.59); Monocytes % (auto) 6.2 %; Neutrophils # (auto) 9.51 K/uL (1.40-6.50); Neutrophils % (auto) 70.4 %; Platelet Count 361 K/uL (130-400); RDW Coefficient of Variation 13.8 % (11.5-14.5); RDW Standard Deviation 47.9 fL (36.4-46.3); Red Blood Count 4.18 M/uL (4.20-5.40); White Blood Count 13.53 K/ul (4.8-10.8)
[2024-02-02 08:09] LABS: BUN Creatinine Ratio 48.1 (10-20); Calcium 8.7 mg/dl (8.6-10.3); Creatinine Clr Calc Pharmacy 77.3 ml/min; Est GFR (African American) 104.8 ml/min; Est GFR (Non-African American) 90.4 ml/min; Potassium 3.9 mmol/L (3.5-5.1)
[2024-02-02] MEDS: methylPREDNISolone 20 MG in SYRINGE 0 ML IV SCH (08:35)
[2024-02-02] MEDS ORDERED: methylPREDNISolone 125 MG/2 ML VIAL IV SCH (09:00)
[2024-02-02 11:22] VITALS: BP 151/87; TEMP 98.1
[2024-02-02 12:07] VITALS: RESP 18
[2024-02-02 12:49] VITALS: O2SAT 93
--- NOTE | 2024-02-02 12:53 | Discharge Summary ---
Discharge Summary Date of Service February 02, 2024 Principal Dx & Hospital Course #1 = Principal Diagnosis (1) Multifocal pneumonia: Worsening SOB/productive cough x 7 days. Did not complete her course of outpatient Augmentin due to side effects - Chest CTA without pulmonary embolism, but included consolidative opacities consistent with multifocal pneumonia - also with pulmonary emphysema - without diagnosis of COPD - Procalcitonin negative. MRSA swab negative. - received Rocephin and azithromycin. Will transition to azithromycin and cefpodoxime at discharge given recent failed outpatient course of Augmentin - Blood cultures -24 hours weaned down to room air. 2-step test recommending 2 L of oxygen with ambulation - arranged through case management patient did not tolerate systemic steroids, will add on Advair inhaler at discharge (2) Parainfluenza virus infection: Parainfluenza 3 (+) on arrival received DuoNeb 3 mL Q6R for wheezing - discharged with as needed albuterol inhaler Supportive care (3) Borderline diabetes: hemoglobin A1c 7.0 resume home metformin at discharge (4) Kidney cysts: 3.3 cm cyst seen on CT scan - recommend outpatient follow-up Plan chronic stable medical problems: * Hypertensioncontinue amlodipine * Hyperlipidemia - continue statin Disposition: discharge to home with home oxygen for ambulation. Message sent to nurse navigator to arrange for PCP follow-up tomorrow with PCP office is open Notes For Next Care Provider when that was admitted with shortness of breath x 1 week, found to have parainfluenza virus, concern for compounding bacterial pneumonia and emphysema seen on chest CT. Treated with antibiotics scheduled nebulizers and steroids. Patient did not tolerate IV steroids well at declines an oral steroid taper. Discharged with as needed albuterol, Advair inhaler and azithromycin and cefpodoxime Blood cultures negative at 24 hours of discharge. Needs follow-up imaging for kidney cyst Would recommend PFTs outpatient for the evaluation of COPD Medication Changes From Visit Discharged with as needed albuterol, Advair inhaler and azithromycin and cefpodoxime Admission HPI Per Admitting Provider Ting is a pleasant 78-year-old female with PMH of borderline diabetes, HTN and HLD. She presented for SOB x 1 week. Her difficulty breathing started Saturday night, and she went to [facility] last Saturday and was diagnosed with bronchitis. She was placed on Augmentin BID as well as an inhaler, but she stopped taking the Augmentin on Saturday due to severe diarrhea. Throughout the week, the breathing got worse. She will use the inhaler every 4 hours, but this did not help. She endorses both SOB at rest and with exertion, but she notes that the JANSEN has become severe even when walking to the bathroom. SOB is worse when she lies flat on her back. No supplemental oxygen at home. When she was at her PCPs office today, her oxygen saturation dropped to 83% on RA with ambulation. She did not take any of her regular morning medicine today except for her amlodipine; no recent change in medications. She denies a history of CHF. She denies smoking, tobacco use, and recent alcohol use. Patient is hypertensive at 163/106, and SpO2 is 92% on 3 L NC. ED course: Rocephin 2000 mg IV Solu-Medrol 60 mg IV x 2 DuoNeb 3 mL ROS: Patient endorses dizziness & lightheadedness with walking, SOB at rest and with exertion, productive cough (clear sputum), hoarseness, diarrhea (secondary to Augmentin, per patient), Patient denies fever, chills, night-sweats, body aches, LINO, changes in vision, chest pain, chest palpitations, pleuritic CP, hemoptysis, wheezing, abdominal pain, N/V, change in urinary/bowel habits, or numbness/tingling/swelling in the arms or legs. Discharge Exam General: NAD, VS as above Resp: normal respiratory effort, no wheezing at rest, on room air CV: RRR, no murmur, Abd: soft, non tender, no hepatosplenomegaly Extremities: Moves all extremities, no edema Neuro: A&O x3, Updated Medication List Medication Instructions Recorded Confirmed Type amlodipine 2.5 mg tablet 2.5 mg PO DAILY 01/31/24 01/31/24 History cholecalciferol (vitamin D3) 50 50 mcg PO DAILY 01/31/24 01/31/24 History mcg (2,000 unit) capsule (Vitamin D3) metformin 500 mg tablet,extended 500 mg PO DAILY 01/31/24 01/31/24 History release 24 hr pravastatin 80 mg tablet 80 mg PO DAILY 01/31/24 01/31/24 History acetaminophen 500 mg tablet 1,000 mg (2 x 500 mg) PO TID PRN 02/02/24 01/31/24 Rx (Tylenol Extra Strength) Pain #0 tabs albuterol sulfate 90 mcg/actuation 2 inh inhalation Q4H PRN shortness 02/02/24 Rx aerosol inhaler of breath or wheezing #6.7 grams azithromycin 250 mg tablet 250 mg PO DAILY 3 days #3 tabs 02/02/24 Rx cefpodoxime 200 mg tablet 200 mg PO BID 3 days #6 tabs 02/02/24 Rx fluticasone 55 mcg-salmeterol 14 1 inh inhalation BID #1 ea 02/02/24 Rx mcg/actuation breath activated powder Hospital Stay Data Consultations 01/31/24 16:13 ED Decision to Admit Stat Diagnostic Imagining Performed Chest X-Ray 01/31/24 11:43 XR chest 1V not portable HISTORY: Shortness of breath. Cough. COMPARISON: None. FINDINGS: No pneumothorax. No pleural effusions. No focal lung consolidations to suggest a pneumonia. No evidence for pulmonary edema. The cardiac silhouette is mildly enlarged. There is a mildly tortuous thoracic aorta. No acute fractures. There is a right shoulder prosthesis. IMPRESSION: Mild cardiomegaly. Otherwise, no acute process within the chest. ACT 112: Negative or not required by law. Electronically signed by: Logan Sullivan M.D. 01/31/2024 12:55 PM Chest CTA 01/31/24 14:37 CT angio chest PE protocol CT DOSE: 453.12 mGy.cm HISTORY: 78 years-old Female with PE. Acute shortness of breath TECHNIQUE: Multiple CTA images of the chest were obtained after the intravenous administration of 118 ml Optiray. Coronal and sagittal MIPS were obtained from the axial data set and were submitted for review. All measurements were obtained according to NASCET criteria. A dose lowering technique was utilized adhering to the principles of ALARA. COMPARISON: Chest radiograph same day FINDINGS: CTA: Heart is mildly enlarged. Mild coronary artery calcifications. Atherosclerosis of the aorta with descending thoracic aortic tortuosity. Additionally, there is ectasia of the descending thoracic aorta, 3.4 cm. No pulmonary emboli identified. CT CHEST: No thyroid nodule. Mediastinal and hilar lymph nodes measure up to 9 mm, likely reactive. No pneumothorax. Bronchial wall thickening with multifocal mucus p lugging. Mild pulmonary emphysema. Patchy subsegmental groundglass and nodular areas of consolidation are noted within a multilobar distribution including a 2.7 cm focus in the right upper lobe, image 150. No pulmonary edema. 3.3 cm probable cyst of the superior pole left kidney. Reverse right shoulder arthroplasty. No acute fracture. IMPRESSION: 1. No pulmonary emboli identified. 2. Emphysema with bronchitis and mucous plugging. Additional patchy groundglass and consolidative opacities are suggestive of multifocal pneumonia. 3. Borderline enlarged mediastinal and hilar lymph nodes, likely reactive. 4. Ectasia of the descending thoracic aorta, 3.4 cm. ACT 112: Negative or not required by law. The above report was generated using voice recognition software. It may contain grammatical, syntax or spelling errors. Electronically signed by: Prudencio Mehta M.D. 01/31/2024 3:46 PM Pending Results Patient Have Any Pending Studies at Discharge: Yes (blood cultures ) Discharge Instructions Given to Patient (Per Discharging Provider) Ms. Krause, You were hospitalized after being short of breath. You were found to have Parainflueza virus that we have treated with nebulizer treatments and steroids. You did not react favorably to the steroids and those will not be continued at discharge. I will add an additonal daily inhaler. There was concern that you also had underlying bacteria pneumonia, you will continue a course of antibiot ics - azithromycin and cefpodoxmine to treat this. I will also send you with an inhaler that can be used as needed for shortness of breath or wheezing. You were requiring oxygen during your stay, thankfully you have improved at rest but are still requiring 2L with ambulation. Home oxygen has been arranged for you. Use your pulse oximeter at home and periodically check to make sure your saturations are remaining above 90%. If there are below that and you are feeling short of breath, please contact your PCP. You should also follow up with your PCP in the next 7-10 days. They can redo the walk test to see if you are still needing oxygen with acivity. ALso, there was an incidental cyst found on your kidney, that was 3cm. These are normally benign, but do require follow up to make sure they are not growing. Your PCP can follow up on when the next time this should be imaged. Overall, this is not much to worry about. Medications: Your medication list has been reviewed and reconciled upon discharge to ensure accuracy and continuity of care. An updated list of all your medications is included with your hospital discharge paperwork. Please review this list c losely, and make note of any changes. * Azithromycin 250mg daily x3 days (antibiotic) * Cefpodoxime 200mg twice day x 3 days * Fluticasone - salmetrol inhaler Twice a day until you follow up with your PCP * Albuterol inhaler - 2 puffs every 4 hours as needed for shortness of breath or wheezing *these were sent to [facility] Take your medications as instructed; do not skip a dose of your medicines. Make sure all of your doctors know every medicine you are taking (including [id number] medicines, vitamins, and supplements). Call your primary care provider before taking any new medicines (including over- the-counter medicines, vitamins, and supplements), because some of these may interact with your current medications, or may make your symptoms worse. Tell your primary care provider if you cannot afford your medications. Activity: You can do normal everyday activities as your body allows. Take rest breaks if you feel tired. Do not overexert. Stop activity if you have pain, shortness of breath or feel dizzy. Follow-up appointments: Make an appointment with your primary care physician within one week of discharge. A copy of this summary will be sent to them. Every time you see your primary care physician, or any other doctor, bring your medication list, and a list of questions. CONTACT YOUR PRIMARY CARE PROVIDER if you experience any of the following: Shortness of breath or difficulty breathing Fevers or chills Feeling tired with normal activity or experiencing dizziness or fainting Difficulty following your treatment plan, or difficulty taking medications CALL 911 OR GO TO THE EMERGENCY DEPARTMENT if you experience any of the following: Severe abdominal pain or nausea/vomiting Severe chest pain, or chest pain that radiates (moves) to your jaw or arm Sudden, severe shortness of breath or difficulty breathing Thank you for allowing us to participate in your care. Total Time Total Time Spent Total Time Spent (In Minutes): Time spend day of discharge 37 minutes including direct patient care, medication reconciliation, documentation, review of labs and images, and coordination of care. Coding Level of Care Code 41974 INP/OBS DISCH >30 MIN Diagnoses Multifocal pneumonia J18.9 Parainfluenza virus infection B34.8 Borderline diabetes R73.03 Kidney cysts N28.1
[2024-02-02 14:22] VITALS: PULSE 80
--- NOTE | 2024-02-03 15:44 | Coding Query ---
CODING QUERY To promote full compliance with coding requirements relating to patient care, provider participation is requested in all cases of orthotic technician uncertainty. Please assist us with the question(s) below: Coding Question(s): Pt admitted with shortness of breath. Tested positive for parainfluenza virus 3. Discharge Summary documented " found to be positive for parainfluenza, concern for compounded bacterial pneumonia". Please document, if known or suspected the type of pneumonia patient was treated for. Thanks for your help. Severiano Sampson [facility] Physician's Response(s): 1. acute bronchitis 2nd to parainfluenza virus 2. b/l bacterial pneumonia in the setting of #1 above Principal Diagnosis: "that condition established after study, to be chiefly responsible for occasioning the admission of the patient to the hospital for care." Co-Existing Principal Diagnosis: "when two or more diagnoses equally meet the criteria for principal diagnosis as determined by the circumstances of admission, diagnostic work up, and/or therapy provided, and the Alphabetic Index, Tabular List, or another coding guideline does not provide sequencing direction, any one of the diagnoses may be sequenced first." "When the physician has documented what appears to be a current diagnosis in the body of the record, but has not included the diagnosis in the final diagnostic statement, the physician should be asked whether the diagnosis should be added." (Source Coding Clinic 2 QTR90. p3-4) OSEASD
== END 2024-02-02 15:20 | disposition home or self-care (01) | DRG 202 ==
LOC: ED 11:36 → 2W 17:50 → SUATTDRO 17:50 → 2W 19:44